=== PATIENT | female | born 1940 | race African-American/Black ===

== ENCOUNTER 2020-08-10 07:51 | Day surgery (SDC) | payer OTHER ==
[2020-08-09 17:41] VITALS: BMI 26.6
[2020-08-10 09:09] LABS: INR 1.04 (0.83-1.09); PROTHROMBIN TIME (PATIENT) 12.6 SEC (9.7-13.0)
[2020-08-10] MEDS ORDERED: ONDANSETRON 4 MG/2 ML VIAL IVPUSH PRN (12:46)
[2020-08-10] MEDS ORDERED: ACETAMINOPHEN 325 MG TABLET (FP) PO ONE (12:47)
[2020-08-10 16:54] VITALS: BP 128/79; PULSE 97; TEMP 98
== END 2020-08-10 17:05 | disposition home or self-care (01) ==
LOC: JRADIR 07:51
PROVIDERS: ATTEND Urology
PROC: 0T503ZZ Destruction of Right Kidney, Percutaneous Approach (ICD-10-PCS; principal; 2020-08-10)
DX: N28.1 Cyst of kidney, acquired (principal); N28.89 Other specified disorders of kidney and ureter
CPT/HCPCS: 36415; 50592; 77013-TC; 85610; 88108; 88305-TC